=== PATIENT | male | born 1955 | race Caucasian/White ===

== ENCOUNTER 2018-08-19 19:44 | Emergency (ER) | payer SELFPAY ==
[~2018-08-19] VITALS: Ht 165.1 cm; Wt 63.0 kg
[2018-08-19] MEDS ORDERED: TETRACAINE 0.5% OPHTH DROPS 4ML OP ONE (22:45)
[2018-08-19] MEDS ORDERED: FLUORESCEIN SODIUM 1MG/STRIP OP ONE (22:45)
[2018-08-20 00:34] VITALS: BP 132/67
== END 2018-08-20 00:38 | disposition home or self-care (01) ==
LOC: ER 19:44
DX: S05.01XA Injury of conjunctiva and corneal abrasion without foreign body, right eye, initial encounter (principal); Z96.652 Presence of left artificial knee joint; W50.4XXA Accidental scratch by another person, initial encounter; Y93.89 Activity, other specified; Y92.89 Other specified places as the place of occurrence of the external cause; Y99.8 Other external cause status
CPT/HCPCS: 99283